=== PATIENT | female | born 1955 | race Caucasian/White ===

== ENCOUNTER 2019-09-16 13:14 | Outpatient (CLI) | payer MEDICARE ==
[2019-09-16] MEDS ORDERED: LIDOCAINE-MPF 1%, 5ML ONE (13:48)
== END 2019-09-16 23:59 | disposition home or self-care (01) ==
LOC: RAD 13:14
PROVIDERS: ATTEND Specialist
DX: M05.79 Rheumatoid arthritis with rheumatoid factor of multiple sites without organ or systems involvement (principal)
CPT/HCPCS: 20605; 77002; 87070; 87075; 87205; 88112; 88305

== ENCOUNTER → 2020-03-06 | Outpatient (CLI) | payer MEDICARE | END | disposition home or self-care (01) | LOC: CFH 13:55 | PROVIDERS: ATTEND Nurse Practitioner | DX: M19.071 Primary osteoarthritis, right ankle and foot (principal); M81.8 Other osteoporosis without current pathological fracture; M25.771 Osteophyte, right ankle; M25.371 Other instability, right ankle ==